=== PATIENT | female | born 1955 | race Two or more races ===

== ENCOUNTER 2016-11-30 07:23 | Outpatient (CLI) | payer OTHER | END 2016-11-30 11:18 | disposition home or self-care (01) | LOC: FOBOP 07:23 → F1NOP 11:18 | PROVIDERS: ATTEND Internal Medicine Hematology & Oncology | PROC: 30233M1 Transfusion of Nonautologous Plasma Cryoprecipitate into Peripheral Vein, Percutaneous Approach (ICD-10-PCS; principal; 2016-11-30) | DX: D68.0 Von Willebrand disease (principal) | CPT/HCPCS: 36430; 96365; P9012 ==

== ENCOUNTER 2017-05-17 15:00 | Observation (INO) | payer OTHER ==
[2017-05-17] MEDS ORDERED: oxyCODONE IR 5 MG TAB PO PRN (17:13)
[2017-05-17] MEDS ORDERED: PROMETHAZINE HCL 25 MG TAB PO PRN (17:13)
[2017-05-17] MEDS ORDERED: ONDANSETRON DISINTEGRATING 4 MG TAB PO PRN (17:13)
[2017-05-17] MEDS ORDERED: ONDANSETRON 4 MG/2 ML VIAL IVP PRN (17:13)
[2017-05-17] MEDS ORDERED: PROMETHAZINE HCL 25 MG/ML INJ IVP PRN (17:13)
[2017-05-17] MEDS ORDERED: ACETAMINOPHEN/CODEINE 300/30MG TAB PO PRN (17:15)
[2017-05-17 18:05] VITALS: RESP 16
[2017-05-17] MEDS: NS 1,000 ML IV SCH (18:20)
[2017-05-17] MEDS ORDERED: FLUOCINONIDE 0.05% 15 GM CREAM TP PRN (19:10)
[2017-05-17] MEDS ORDERED: CYCLOBENZAPRINE 10 MG TAB PO PRN (19:10)
[2017-05-17] MEDS ORDERED: ALBUTEROL 200 PUFFS/18 GM MDI IH PRN (19:10)
[2017-05-17] MEDS ORDERED: MAGNESIUM HYDROXIDE 30 ML UDCUP PO PRN (19:11)
[2017-05-17] MEDS ORDERED: LACTULOSE 20 GM/30 ML UDCUP PO PRN (19:11)
[2017-05-17] MEDS ORDERED: POLYETHYLENE GLYCOL 3350 17 GM PKT PO PRN (19:11)
[2017-05-17] MEDS ORDERED: BISACODYL 10 MG SUPP PR PRN (19:11)
--- NOTE | 2017-05-17 19:15 | PDGENHP ---
History and Physical - Chief Complaint Acute mouth pain - History of Present Illness Primary generation technician: Dr. Valenzuela HPI: 61-year-old female presenting with acute mouth pain located in the right axillary jaw at the site of her tooth extraction and bone graft with some associated mild bleeding and clotting at the site. She reports the pain is alleviated by Tylenol 3 and that the onset is after surgery on the day of this presentation. Duration has been persistent thereafter until was alleviated with the oral pain medication. The bleeding was very transient and has clotted. She received 1 dose of cryoprecipitate prior to her procedure. Prior to her procedure, she had otherwise been feeling well. Her last bowel movement was on the morning of this presentation. History Information - Allergies/Home Medication List Allergies/Adverse Reactions: latex [Latex] Allergy (Intermediate, Verified 08/18/11 05:42) Hives Benzodiazepines Allergy (Verified 08/25/14 14:20) desmopressin Allergy (Verified 08/25/14 14:20) lorazepam [From Ativan] Allergy (Verified 08/25/14 14:19) adhesive on tape Allergy (Uncoded 09/21/14 15:47) Home Medications: Cyclobenzaprine [Flexeril 10 MG (*)] 5 - 10 mg PO HS PRN 08/25/14 [Last Taken 22:00] Fluticasone Nasal [Flonase Nasal [place]] 2 sprays EACHNARE DAILY 08/25/14 [Last Taken 06/13/16 04:00] Oxybutynin Chloride Xl [Ditropan Xl 5mg (*)] 5 mg PO BID 08/25/14 [Last Taken 22:00] Simvastatin [Zocor 20 mg] 20 mg PO HS 08/25/14 [Last Taken 06/12/16 22:00] Anastrozole [Arimidex 1 mg (*)] 1 mg PO DAILY 01/07/15 [Last Taken 04/04/16] Albuterol [Ventolin Hfa Inhaler] 2 puffs IH DAILY PRN 06/06/16 [Last Taken 10/05] Cholecalciferol Vit D3 [Vitamin D3 (*)] 1,000 units PO DAILY 06/13/16 [Last Taken Unknown] Pentosan Polysulfate Sodium [ELMIRON] 100 mg PO TID 06/13/16 [Last Taken 04:00] Vitamin B Complex [B Complex] 1 each PO DAILY 06/13/16 [Last Taken Unknown] Fexofenadine HCl [Annmarie Allergy] 180 mg PO DAILY 05/17/17 [Last Taken Unknown] Fluocinonide 0.05% [Lidex 0.05% Cream (RX)] 1 shad TP BID PRN 05/17/17 [Last Taken Unknown] LEVOTHYROXINE SODIUM [Tirosint 75 mcg] 75 mcg PO MOTH 05/17/17 [Last Taken Unknown] Levothyroxine Sodium [Tirosint] 100 mcg PO SUTUWEFRSA 05/17/17 [Last Taken Unknown] Pentosan Polysulfate Sodium [Elmiron] 100 mg PO TID 05/17/17 [Last Taken Unknown ] I have personally reviewed and updated: family history, medical history, social history, surgical history - Past Medical History Additional medical history: 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 Interstitial cystitis. Nikki's thyroiditis. Cervical neck pain. Hyperlipidemia. Breast cancer. Hypothyroidism. Leftarm tendinopathy - Surgical History Additional surgical history: mastectomy. Dental surgery. Hysterectomy. Tonsillectomy. Orthopedic surgery - Family History Additional family history: breast cancer, von Willebrand's factor - Social History Smoking Status: Heavy smoker Alcohol Use: None Drug Use: None Additional social history: normally independent in ADLs Review of Systems ROS: 10pt was reviewed & negative except for what was stated in HPI & below Muscolosketal: Reports: other ( mouth pain) Physical Exam Temp Pulse Resp BP Pulse Ox 36.8 C 77 16 142/83 H 94 05/17/17 18:02 05/17/17 18:02 05/17/17 18:02 05/17/17 18:02 05/17/17 18:02 Constitutional: no apparent distress, appears nourished, not in pain Eyes: PERRL, anicteric sclera, EOMI Ears, Nose, Mouth, Throat: moist mucous membranes, hearing normal, other ( clotted blood on the axillary jaw line with sutures in place) Cardiovascular: regular rate and rhythym, no murmur, rub, or gallop, No edema Respiratory: no respiratory distress, no rales or rhonchi, clear to auscultation Gastrointestinal: normoactive bowel sounds, soft, non-tender abdomen, no palpable masses Skin: warm, normal color, no rashes or abrasions, no fluctuance, no induration, No mottled Neurologic: AAOx3, No facial droop Psychiatric: interacting appropriately, not anxious, not encephalopathic, thought process linear Assessment & Plan Assessment: 61-year-old female presents with oral pain following oral surgery in the setting of von Willebrand's like-factor disorder and factor IV deficiency Plan: 1. Oral surgery. Pain is currently well managed with Tylenol 3, bowel regimen added to avoid constipation, she will follow up with Dr. Marr 2. Von Willebrand's factor like disorder with factor 12 deficiency. Reviewed outside records including 06/13/2016 history and physical by Dr. Rodrigo Wheat, he describes the previous strategy for cryoprecipitate in this patient, discussed with Dr. Belgica Guzmán and we both agree that the patient should receive 2 doses of cryoprecipitate overnight at 8hr intervals given her high risk of delayed bleeding -will check CBC in a.m. -monitor closely for bleeding -discharge in a.m. if she does not experience any bleeding while receiving the cryoprecipitate treatment Diet. Regular, recommend soft Prophylaxis. High risk patient, SCDs Code. Full Disposition. Anticipated discharge is 05/18/2017, pending no catastrophic bleeding events overnight.
[2017-05-17] MEDS ORDERED: ATORVASTATIN CALCIUM 10 MG TAB PO SCH (21:00)
[2017-05-17] MEDS ORDERED: OXYBUTYNIN 5 MG EXT REL TAB PO SCH (21:00)
[2017-05-17] MEDS ORDERED: PENTOSAN POLYSULFATE SODIUM 100 MG PO SCH (22:00)
[2017-05-17] MEDS: SENNOSIDES/DOCUSATE SODIUM TAB PO SCH (22:28)
[2017-05-18] MEDS: OXYBUTYNIN CHLORIDE 5 MG TAB PO SCH ×2 (00:44→09:56)
[2017-05-18] MEDS: Pentosan Polysulfate Sodium [Elmiron] 100 MG PO SCH ×2 (00:45→09:56)
[2017-05-18] MEDS: NS 1,000 ML IV SCH (02:25)
[2017-05-18 05:06] LABS: % IMMATURE GRANULYOCYTES 0.4 % (0.0-1.1); ABSOLUTE IMMATURE GRANULOCYTES 0.03 10^3/uL (0.00-0.10); ADD DIFF? NO; ADD MORPH? NO; ADD SCAN? NO; ATYPICAL LYMPHOCYTE FLAG 0 (0-99); FRAGMENT RBC FLAG 0 (0-99); HEMATOCRIT 37.4 % (38.0-47.0); HEMOGLOBIN 12.3 g/dL (12.6-16.3); LEFT SHIFT FLG 10 (0-99); LIPEMIA HEMOLYSIS FLAG 80 (0-99); MEAN CELL HEMOGLOBIN 29.6 pg (27.9-34.1); MEAN CELL HEMOGLOBIN CONCENTR. 32.9 g/dL (32.4-36.7); MEAN CELL VOLUME 90.1 fL (81.5-99.8); MEAN PLATELET VOLUME 10.8 fL (8.7-11.7); PLATELET CLUMPS FLAG 0 (0-99); PLATELET COUNT 193 10^3/uL (150-400); RED BLOOD CELL COUNT 4.15 10^6/uL (4.18-5.33); RED CELL DISTRIBUTION WIDTH 13.2 % (11.5-15.2)
[2017-05-18] MEDS ORDERED: LEVOTHYROXINE SODIUM 100 MCG PO SCH (06:00)
[2017-05-18 08:05] VITALS: BP 115/79; PULSE 67; TEMP 98; O2SAT 95
[2017-05-18] MEDS ORDERED: CHOLECALCIFEROL VIT D3 1,000 UNITS TAB PO SCH (09:00)
[2017-05-18] MEDS ORDERED: CETIRIZINE 10 MG TAB PO SCH (09:00)
[2017-05-18] MEDS ORDERED: FLUTICASONE NASAL 120 SPRAYS/16 GM MDI EACHNARE SCH (09:00)
[2017-05-18] MEDS ORDERED: ANASTROZOLE 1 MG TAB PO SCH (09:00)
[2017-05-18] MEDS ORDERED: VITAMIN B COMPLEX 1 EA CAP/TAB PO SCH (09:00)
[2017-05-18] MEDS: SENNOSIDES/DOCUSATE SODIUM TAB PO SCH (09:56)
--- NOTE | 2017-05-18 11:05 | SOAPPROG ---
SOAP Progress Note Assessment/Plan: Assessment/Plan: 61 woman w vWD admitted for obs in setting of oral surgery s/p cryo x 3 No bleeding currently H/H ok OK to d/c today f/u w DR Valenzuela as scheduled 05/18/17 11:03 Subjective: Doing well some bleeding overnight Objective: Vital Signs Temp Pulse Resp BP Pulse Ox 36.6 C 67 16 115/79 95 05/18/17 08:03 05/18/17 08:03 05/18/17 08:03 05/18/17 08:03 05/18/17 08:03 Laboratory Results 05/18/17 04:29 05/17/17 05/18/17 05/19/17 05:59 05:59 05:59 Intake Total 3320 Balance 3320 Gen - NAD Oral cavity - no active bleeding tooth extraction site noted ICD10 Worksheet Patient Problems: Problems Problem Status Onset Breast cancer Acute
--- NOTE | 2017-05-18 11:58 | PDDCSUM ---
Discharge Summary Discharge Summary: 61 yo female with hx of Von Willebrand like disorder with factor 12 deficiency. Admitted following tooth extraction for bleeding precautions. Received cryoprecipitate before procedure and 2 doses here after the procedure. No e/o bleeding. Hgb is 12.3. Pain is well controlled DISCHARGE Dx: #VW like disorder, factor 12 deficiency #Post tooth extraction bleeding #Acute Pain Exam: VSS NAD AAOX3 RRR CTAB S/NT/ND NO E/O BLEEDING DISCHARGE MEDS: SEE MED REC. Oxycodone IR 5mg script provided #20 pills. No other changes to home regime f/u: will f/u with Dr. Nolasco as planned.
[2017-05-21] MEDS ORDERED: LEVOTHYROXINE SODIUM 75 MCG PO SCH (06:00)
== END 2017-05-18 13:30 | disposition home or self-care (01) ==
LOC: F1N 15:00
PROVIDERS: ADMIT Family Medicine; ATTEND Family Medicine
PROC: 30233M1 Transfusion of Nonautologous Plasma Cryoprecipitate into Peripheral Vein, Percutaneous Approach (ICD-10-PCS; principal; 2017-05-17)
DX: D68.0 Von Willebrand disease (principal); D68.2 Hereditary deficiency of other clotting factors; R68.84 Jaw pain; E06.3 Autoimmune thyroiditis; E78.5 Hyperlipidemia, unspecified; F17.210 Nicotine dependence, cigarettes, uncomplicated; Z85.3 Personal history of malignant neoplasm of breast
CPT/HCPCS: 36430; G0378; P9012; J2405

== ENCOUNTER 2017-10-03 10:15 | Outpatient (CLI) | payer OTHER | END 2017-10-03 12:08 | disposition home or self-care (01) | LOC: FOBOP 10:15 | PROVIDERS: ATTEND Internal Medicine Hematology & Oncology | PROC: 30233M1 Transfusion of Nonautologous Plasma Cryoprecipitate into Peripheral Vein, Percutaneous Approach (ICD-10-PCS; principal; 2017-10-03) | DX: D68.0 Von Willebrand disease (principal) | CPT/HCPCS: 36430; P9012; P9016 ==

== ENCOUNTER → 2017-10-03 | Outpatient (CLI) | payer OTHER | LOC: FIMAGING 12:20 | PROVIDERS: ATTEND Internal Medicine Hematology & Oncology | DX: R05 Cough (principal); Z85.3 Personal history of malignant neoplasm of breast ==

== ENCOUNTER 2017-11-22 08:05 | Observation (INO) | payer OTHER ==
[2017-11-22] MEDS ORDERED: ONDANSETRON 4 MG/2 ML VIAL IVP PRN (13:34)
[2017-11-22] MEDS ORDERED: ACETAMINOPHEN 325 MG TAB PO PRN (13:34)
[2017-11-22] MEDS ORDERED: FLUOCINONIDE 0.05% 15 GM CREAM TP PRN (14:31)
[2017-11-22] MEDS ORDERED: ACETAMINOPHEN/CODEINE 300/30MG TAB PO PRN (14:32)
[2017-11-22] MEDS ORDERED: LEVOTHYROXINE SODIUM 100 MCG PO SCH (14:45)
--- NOTE | 2017-11-22 15:07 | GHP ---
[f rep st] HISTORY AND PHYSICAL DATE OF ADMISSION: 11/22/2017 CHIEF COMPLAINT: Bleeding risk. HISTORY: The patient is a 62-year-old female with a known history of von Willebrand disease and fact or 12 deficiency. She has previously had a life-threatening bleed due to a dental procedure. She re quired a tooth extraction today and, per protocol, arranged with Dr. Valenzuela. She received 1 cryo in fusion prior to [facility]. She subsequently had her procedure and is no w presenting for overnight observation and 2 more cryoglobulin infusions this evening. Her tooth ext raction went without incident, and she does have some anticipated postoperative pain and requesting T ylenol #3. She is otherwise feeling well and in her usual state of health. PAST MEDICAL HISTORY: 1. Von Willebrand's disease. 2. Factor 12 deficiency. 3. Breast cancer, status post left mastectomy. 4. Nikki thyroiditis. 5. Hyperlipidemia. 6. Interstitial cystitis. PAST SURGICAL HISTORY: Hysterectomy. MEDICATIONS: Please see computer record for full detailed list. ALLERGIES: Multiple. Please see list in computer. SOCIAL HISTORY: She smokes daily, almost a pack a day. No alcohol. She lives with her . REVIEW OF SYSTEMS: Complete review of systems obtained. Review of systems negative regarding consti tutional, HEENT, GI, pulmonary, cardiovascular, , hematology, skin, muscular, endocrine, psych, exc ept for positives and negatives as in HPI. FAMILY HISTORY: Reviewed and noncontributory to presenting complaint. PHYSICAL EXAMINATION: GENERAL: Well-developed, well-nourished female, in no distress. VITAL SIGNS: Temperature 36.8, pulse 72, blood pressure 104/68, satting greater than 90% on room air. EYES: No rmal conjunctivae. Pupils react to light. ENT: Normal ears and nose. Hearing intact. Normal teet h. Oropharynx moist. NECK: Trachea midline. No thyromegaly. CHEST: Normal effort. LUNGS: Vida r to auscultation bilaterally. CARDIOVASCULAR: Regular rhythm. No murmur. No extremity edema. AB DOMEN: Soft, nontender. No hepatosplenomegaly. SKIN: Warm, dry, intact rash. MUSCULO SKELETAL: No cyanosis or clubbing. Strength 5/5, bilateral upper and lower extremities. NEURO: Cr anial nerves intact. Normal sensation to light touch. PSYCHIATRIC: Alert and oriented x3. Normal affect. Normal judgment. Normal memory. LABORATORY DATA: There are no labs yet, but I will order a CBC and Chem 7 for tomorrow morning, as w ell as deferring to Dr. Valenzuela regarding any factor levels that need to be checked tomorrow. MEDICAL RECORDS REVIEW: I reviewed medical records and previous hospitalizations, with similar tanner cols for dental work and cryoglobulin infusions. ASSESSMENT AND PLAN: 1. Von Willebrand's disease with factor 12 deficiency, cryoglobulin per Dr. Valenzuela, as well as foll ow up laboratory studies as needed. 2. Dental extraction. This proceeded without incident. Will continue Tylenol #3 as needed for pain . 3. Tobacco dependence. She declines a nicotine patch while she is in the hospital. 4. Hypothyroidism. Will continue Synthroid. COR STATUS: Full. ADMISSION STATUS: Will admit to observation and re-evaluate tomorrow regarding ongoing need for hosp italization. DVT PROPHYLAXIS: She is low risk. /[id number]/MODL
[2017-11-22] MEDS: Pentosan Polysulfate Sodium [Elmiron] 100 MG PO SCH ×2 (19:10→22:00)
[2017-11-22] MEDS ORDERED: CYCLOBENZAPRINE 10 MG TAB PO SCH (21:00)
[2017-11-22] MEDS ORDERED: OXYBUTYNIN CHLORIDE 5 MG TAB PO SCH (21:00)
[2017-11-22] MEDS ORDERED: NON-FORMULARY NEW DRUG (Simvastatin [Zocor 20 Mg] 20 MG) PO SCH (21:00)
[2017-11-22] MEDS ORDERED: ATORVASTATIN CALCIUM 10 MG TAB PO SCH (21:00)
[2017-11-22 22:02] VITALS: RESP 16
[2017-11-23] MEDS ORDERED: LEVOTHYROXINE 75 MCG TAB PO SCH (06:00)
[2017-11-23 06:38] LABS: PLATELET COUNT 212 10^3/uL (150-400)
[2017-11-23] MEDS ORDERED: ANASTROZOLE 1 MG TAB PO SCH (09:00)
[2017-11-23] MEDS ORDERED: FLUTICASONE NASAL 120 SPRAYS/16 GM MDI EACHNARE SCH (09:00)
[2017-11-23] MEDS ORDERED: CETIRIZINE 10 MG TAB PO SCH (09:00)
[2017-11-23] MEDS ORDERED: CHOLECALCIFEROL VIT D3 1,000 UNITS TAB PO SCH (09:00)
[2017-11-23] MEDS ORDERED: NON-FORMULARY NEW DRUG (Fexofenadine Hcl [Allegra Allergy] 180 MG) PO SCH (09:00)
[2017-11-23 10:11] VITALS: BP 105/69; PULSE 67; TEMP 97.3; O2SAT 94
--- NOTE | 2017-11-23 10:53 | SOAPPROG ---
[facility] Progress Note Assessment/Plan: Assessment: - vWD with linked factor XII deficiency - responds well to cryo. I would give her one more dose before discharge - dental surgery - no undue bleeding - Breast CA - TRACIE Plan: ok for D/C to home after her last dose of cryo Check PT/PTT before discharge Subjective: No bleeding Objective: Vital Signs Temp Pulse Resp BP Pulse Ox 36.3 C 67 16 105/69 94 11/23/17 07:30 11/23/17 07:30 11/23/17 07:30 11/23/17 07:30 11/23/17 07:30 Laboratory Results 11/23/17 06:15 11/23/17 06:15 11/21/17 11/22/17 11/23/17 23:59 23:59 23:59 Intake Total 800 Balance 800 Physical Exam - Physical Exam EENT: other (no oral hemorrhage) Skin: other (expected bruising L chin) ICD10 Worksheet Patient Problems: Problems Problem Status Onset Breast cancer Acute
[2017-11-23 13:32] LABS: INR 1.18 (0.83-1.16); PROTIME(PATIENT) 15.2 SEC (12.0-15.0)
[2017-11-23] MEDS: Pentosan Polysulfate Sodium [Elmiron] 100 MG PO SCH (13:43)
[2017-11-23] MEDS ORDERED: LEVOTHYROXINE SODIUM 75 MCG PO SCH (14:31)
[2017-11-23] MEDS ORDERED: Pentosan Polysulfate Sodium [Elmiron] 100 MG PO SCH (16:00)
--- NOTE | 2017-11-24 01:54 | GDS ---
[f rep st] DISCHARGE SUMMARY DISCHARGE DIAGNOSES: 1. Von Willebrand disease with factor XII deficiency. 2. History of life-threatening bleed due to dental extractions. 3. Tobacco dependence. 4. Hypothyroidism. HISTORY: The patient is a 62-year-old female with a coagulopathy and history of life-threatening ble eding from dental work. She has since been diagnosed with Von Willebrand disease with factor XII def iciency. Under the direction of Dr. Valenzuela, her car bracer, they had developed a protocol where s he gets cryoglobulin before and after dental procedures. She had a planned dental extraction, had a [facility]oglobulin through [facility], and then presented after her dental appointment for 2 more cryoglobulin doses and monitoring. She ended up getting a third cryoglobulin per Dr. Valenzuela prior t o discharge, and her follow-up PT and PTT were at her baseline and she was able to discharge home. S he had no bleeding complications throughout her observation period. DISCHARGE MEDICATIONS: Please see computerized record for full detailed list. There are no new medi cations given at time of hospital discharge. ADDITIONAL DISCHARGE INSTRUCTIONS: Follow up with Dr. Valenzuela as needed. Patient was seen and examined by me on the day of discharge. /[id number]/MODL
[2017-11-24] MEDS ORDERED: LEVOTHYROXINE 100 MCG TAB PO SCH (06:00)
== END 2017-11-23 15:00 | disposition home or self-care (01) ==
LOC: UNDOADMOB 08:05 → F1NOP 08:05 → F1N 08:05 → EDSTATUS 08:30 → FOB 12:40
PROVIDERS: ADMIT Internal Medicine; ATTEND Internal Medicine
PROC: 30233M1 Transfusion of Nonautologous Plasma Cryoprecipitate into Peripheral Vein, Percutaneous Approach (ICD-10-PCS; principal; 2017-11-22)
DX: D68.0 Von Willebrand disease (principal); D68.2 Hereditary deficiency of other clotting factors; Z98.818 Other dental procedure status; E03.9 Hypothyroidism, unspecified; E06.3 Autoimmune thyroiditis; F17.210 Nicotine dependence, cigarettes, uncomplicated; Z85.3 Personal history of malignant neoplasm of breast
CPT/HCPCS: 36430; G0378; P9012; P9016

== ENCOUNTER 2018-04-02 12:44 | Observation (INO) | payer OTHER ==
--- NOTE | 2018-04-02 17:18 | PDGENHP ---
History and Physical History and Physical: HOSPITAL MEDICINE CONSULTATION NOTE CC: I have been asked by Cash Valenzuela to evaluate and assist in the care of this patient who has a severe coagulopathy chronically with market bleeding after procedures and required all extractions today. HISTORY: This patient had apparently a dental abscess in November requiring removal of a molar on the lower left. This molar had been attached to a partial bridge which was left behind but the partial bridge was loose leading to infection of the teeth still remaining. This developed into abscess and osteomyelitis in today she required extraction, and resection of mandibular bone tissue and bone grafting. This was uncomplicated and she do well. However the patient does have a severe chronic coagulopathy that involves a factor 12 deficiency, and she always has significant bleeding with any kind of procedures. She requires cryoprecipitate which has been the only therapy that is been found to be effective at preventing or controlling bleeding for her. She did receive cryoprecipitate before her procedure and has had 1 dose after. She still having slight oozing at the operative site and it has been found that she requires cryoprecipitate for usually approximately 524-36 hours after such a procedure to avoid significant bleeding. She has little pain at the surgical site at this time. Apparently there was quite a bit of abscess and she is feeling in fact notably better after the surgery. She has been taking clindamycin for a few days leading up to this. She has no other recent illnesses or symptoms. Right now she has no chest pain breathing difficulty headache, abdominal discomfort nausea. ROS: A comprehensive 10 system review revealed no other significant findings PAST MEDICAL HISTORY: Severe coagulopathy with factor 12 deficiency, requiring cryoprecipitate with any injuries or procedures Breast cancer status post mastectomy Tendinopathy the left arm Nikki's thyroiditis Chronic neck pain Hyperlipidemia FAMILY MEDICAL HISTORY: Breast cancer and von Willebrand's disease SOCIAL HISTORY: She is a cigarette smoker MEDICATIONS: The patients list has been reconciled by our clinical pharmacist in the EMR. I have reviewed the list and ordered appropriate medicines. PHYSICAL EXAMINATION: Vital Signs: All stable so far without fever in the postoperative setting Photonics Engineering Technologist: Examination: General: alert, oriented, good mentation, relaxed Skin: warm, dry, good color, no rash HEENT: She still has mild abdirahman mandibular swelling on the left. On oral examination she has now 3 missing molars lower left, with a surgical bed acutely today involving the anterior teeth, with some very minimal oozing of blood at this time, the wound closure intact. Neck: no mass or jvd Resps: relaxed Lungs: clear breath sounds Heart: regular, no murmur Abdomen: soft, nondistended, nontender, +BS, no mass Upper Extremities: normal Lower Extremities: no edema, warm No Bleeding or bruising Neurologic: normal speech/language, normal kohinoor operator, no focal weakness IV site: looks normal LABORATORY DATA: No current laboratory data so far ASSESSMENT: # status post resection of teeth and mandibular tissue with bone graft for abscess # coagulopathy requiring precipitate for prevention of severe bleeding PLANS: -she will be on observation status here overnight -continue cryoprecipitate 100 mg every 8 hr and follow closely for any severe bleeding -anticipate likely discharge tomorrow if stable -continue her oral clindamycin for infection -continue her other usual medications as appropriate once those have been reconciled by pharmacy I have reviewed the patient's case in detail with Dr. Cash Valenzuela I have reviewed the patient's past medical records as part of this assessment, including previous hospital admission records
[2018-04-02] MEDS ORDERED: FLUOCINONIDE 0.05% 15 GM CREAM TP PRN ×2 (19:17→20:55)
[2018-04-02] MEDS ORDERED: LEVOTHYROXINE SODIUM 100 MCG PO SCH (19:30)
[2018-04-02] MEDS ORDERED: FLUTICASONE NASAL 120 SPRAYS/16 GM MDI EACHNARE PRN (20:56)
[2018-04-02] MEDS ORDERED: CLINDAMYCIN HCL 300 MG PO SCH (21:00)
[2018-04-02] MEDS ORDERED: CLINDAMYCIN HCL PO SCH (21:00)
[2018-04-02] MEDS ORDERED: OXYBUTYNIN CHLORIDE 5 MG TAB PO SCH (21:00)
[2018-04-02] MEDS ORDERED: ATORVASTATIN CALCIUM 10 MG TAB PO SCH (21:00)
[2018-04-02] MEDS ORDERED: SIMVASTATIN 20MG PO SCH (21:15)
[2018-04-02] MEDS ORDERED: PENTOSAN POLYSULFATE SODIUM 100 MG PO SCH (22:00)
[2018-04-02] MEDS ORDERED: POLYETHYLENE GLYCOL 3350 17 GM PKT PO PRN (22:53)
[2018-04-02] MEDS ORDERED: LACTULOSE 20 GM/30 ML UDCUP PO PRN (22:53)
[2018-04-02] MEDS ORDERED: BISACODYL 10 MG SUPP PR PRN (22:53)
[2018-04-02] MEDS ORDERED: MAGNESIUM HYDROXIDE 30 ML UDCUP PO PRN (22:53)
[2018-04-02] MEDS ORDERED: SENNOSIDES/DOCUSATE SODIUM TAB PO SCH (23:00)
[2018-04-02] MEDS: Pentosan Polysulfate Sodium [Elmiron] 100 MG) PO SCH (23:13)
[2018-04-02] MEDS ORDERED: CYCLOBENZAPRINE 10 MG TAB PO SCH (23:33)
[2018-04-03] MEDS ORDERED: LEVOTHYROXINE SODIUM 100 MCG PO SCH (06:00)
[2018-04-03] MEDS: Pentosan Polysulfate Sodium [Elmiron] 100 MG) PO SCH (06:02)
[2018-04-03 07:59] LABS: PLATELET COUNT 240 10^3/uL (150-400)
[2018-04-03 08:11] LABS: INR 1.11 (0.83-1.16); PROTIME(PATIENT) 14.5 SEC (12.0-15.0)
[2018-04-03] MEDS ORDERED: CHOLECALCIFEROL VIT D3 1,000 UNITS TAB PO SCH (09:00)
[2018-04-03] MEDS ORDERED: FLUTICASONE NASAL 120 SPRAYS/16 GM MDI EACHNARE SCH (09:00)
--- NOTE | 2018-04-03 10:37 | PDDCSUM ---
Discharge Summary Discharge Summary: DISCHARGE DIAGNOSES: -Dental Abscess/Mandibular Osteo -Coagulopathy with Factor XII deficiency -Hx of Breast Cancer PROCEDURES: Dental Extractions and Mandibular debridement by Dr Marr HOSPITAL COURSE SUMMARY: This patient has a long hx of coagulopathy due to factor deficiency and bleeds badly with medical procedures. She required dental extraction and mandibular resection due to infection at this time. She was treated before and after her procedure with cryoprecipitate infusions. There was no significant bleeding, and no side effects from the cryo. No other complications. She is stable for DC at present. Dr Marr has assessed her wound bed and finds it in excellent condition. PENDING TEST RESULTS: None MEDICATION CHANGES: None FOLLOW-UP PLAN: She has plans for follow up with Dr Marr next week. Greater than 35 minutes bedside and care coordination time today
[2018-04-03] MEDS ORDERED: OXYBUTYNIN CHLORIDE 5 MG TAB PO SCH (21:00)
[2018-04-04] MEDS ORDERED: LEVOTHYROXINE SODIUM 75 MCG PO SCH (06:00)
[2018-04-05] MEDS ORDERED: LEVOTHYROXINE SODIUM 75 MCG PO SCH (19:17)
== END 2018-04-03 10:45 | disposition home or self-care (01) ==
LOC: FOBOP 12:44 → FLD 14:00
PROVIDERS: ADMIT Internal Medicine; ATTEND Internal Medicine
PROC: 30233M1 Transfusion of Nonautologous Plasma Cryoprecipitate into Peripheral Vein, Percutaneous Approach (ICD-10-PCS; principal; 2018-04-02)
DX: D68.2 Hereditary deficiency of other clotting factors (principal); K04.7 Periapical abscess without sinus; E06.3 Autoimmune thyroiditis; E78.5 Hyperlipidemia, unspecified; M54.2 Cervicalgia; Z85.3 Personal history of malignant neoplasm of breast; Z80.3 Family history of malignant neoplasm of breast; Z83.2 Family history of diseases of the blood and blood-forming organs and certain disorders involving the immune mechanism; Z90.10 Acquired absence of unspecified breast and nipple; Z98.818 Other dental procedure status
CPT/HCPCS: 36430; G0378; P9012; P9016

== ENCOUNTER → 2018-04-02 | Outpatient (CLI) | payer OTHER ==
[~2018-04-02] MED LIST: DIAZEPAM 5 MG TAB PO ONE
== END ==
LOC: FOBOP 09:50
PROVIDERS: ATTEND Internal Medicine Hematology & Oncology
PROC: 30233M1 Transfusion of Nonautologous Plasma Cryoprecipitate into Peripheral Vein, Percutaneous Approach (ICD-10-PCS; principal; 2018-04-02)
DX: D68.0 Von Willebrand disease (principal); Z98.890 Other specified postprocedural states

== ENCOUNTER 2018-04-04 11:21 | Outpatient (CLI) | payer OTHER | END 2018-04-04 19:29 | disposition home or self-care (01) | LOC: FOBOP 11:21 | PROVIDERS: ATTEND Internal Medicine Hematology & Oncology | PROC: 30233M1 Transfusion of Nonautologous Plasma Cryoprecipitate into Peripheral Vein, Percutaneous Approach (ICD-10-PCS; principal; 2018-04-04) | DX: D68.0 Von Willebrand disease (principal) | CPT/HCPCS: P9012; P9016 ==

== ENCOUNTER 2018-04-05 12:21 | Observation (INO) | payer OTHER ==
[2018-04-05] MEDS ORDERED: ACETAMINOPHEN 325 MG TAB PO PRN (14:00)
--- NOTE | 2018-04-05 14:52 | GHP ---
[f rep st] HISTORY AND PHYSICAL DATE OF ADMISSION: 04/05/2018 CHIEF COMPLAINT: Bleeding and von Willebrand's disease. HISTORY OF PRESENT ILLNESS: This is a 62-year-old female who had a recent dental procedure and has h ad bleeding since then. This began with an abscess in November, which required removal of a molar on the lower left. This was a somewhat complicated procedure involving abscess, as well as osteomyeliti s, with a partial bridge, which was extracted on Sunday. She was admitted after this for cryoprecip itate given her von Willebrand's, as well as factor XII deficiency, which responds well to cryo. She did well, however, returned to see Dr. Valenzuela, her statistical methods teacher, yesterday where she received anoth er unit of cryoprecipitate. She tells me that her bleeding was worse overnight. She saw Dr. Valenzuela today, who sent her in for admission given her ongoing bleeding. She tells me she is swallowing chico e of the blood. She has no other real complaints at this time, including abdominal pain. PAST MEDICAL/SURGICAL HISTORY: 1. Coagulopathy with factor XII deficiency, as well as von Willebrand's disease, which responds well to cryoprecipitate. 2. Breast cancer, status post mastectomy. 3. Left arm tendinopathy. 4. Nikki's thyroiditis. 5. Chronic neck pain. 6. Hyperlipidemia. MEDICATIONS: Please see medication reconciliation. ALLERGIES: Latex, benzodiazepines, desmopressin, and adhesive on tape. FAMILY HISTORY: Breast cancer and von Willebrand's disease. SOCIAL HISTORY: She currently smokes cigarettes. REVIEW OF SYSTEMS: A 10-point review of systems is conducted and is negative, except per HPI. PHYSICAL EXAM: VITAL SIGNS: Blood pressure 104/68, heart rate 80, respiration rate 14, saturating 9 4% on room air. Temperature is 36.8. GENERAL: The patient is a pleasant female who is resting comf ortably, fully participating in the interview. HEENT: Shows her to have a small amount of gauze in the left side of her mouth. CARDIOVASCULAR: Exam shows a regular rate and rhythm. No murmurs, rubs, or gallops. PULMONARY: Lungs clear to auscultation bilaterally. ABDOMEN: Soft, nontender, nondis tended. SKIN: Shows no rash. : No Marr. NEUROLOGIC: Exam shows her to be alert and oriented x3. She is moving all extremities. PSYCHIATRIC: Exam shows a normal mood and affect. LABS: INR reviewed from 04/03/2018, which was 1.1. Her PTT was 46.7. DATA: 1. I communicated with Dr. Valenzuela regarding the dosing schedule of her cryoprecipitate. 2. I reviewed her chart, including her last admission. IMPRESSION AND PLAN: A 62-year-old female with von Willebrand's and factor XII deficiency, admitted with ongoing bleeding after a dental procedure. 1. Bleeding after dental procedure: Recommend 1 unit of cryoprecipitate now, as well as another uni t 8 hours after. I have ordered this. Discussed with nursing. Will check her coags in the morning. She will be seen by Dr. Marr today to assess the surgical site. 2. Von Willebrand's and factor XII deficiency: As above. 3. Breast cancer, status post mastectomy: Will continue her Arimidex. 4. Hypothyroid: Synthroid. 5. Overactive bladder: Oxybutynin. 6. Chronic pain: Continue her Tylenol No. 3. /[id number]/MODL
[2018-04-05] MEDS ORDERED: FLUOCINONIDE 0.05% 15 GM CREAM TP PRN (15:43)
[2018-04-05] MEDS ORDERED: LEVOTHYROXINE SODIUM 100 MCG PO SCH (15:45)
[2018-04-05] MEDS ORDERED: LEVOTHYROXINE 100 MCG TAB PO SCH (15:50)
[2018-04-05] MEDS: (Pentosan Polysulfate Sodium [Elmiron] 100 MG) PO SCH ×2 (17:06→22:24)
[2018-04-05] MEDS ORDERED: CYCLOBENZAPRINE 10 MG TAB PO SCH (21:00)
[2018-04-05] MEDS ORDERED: ATORVASTATIN CALCIUM 10 MG TAB PO SCH (21:00)
[2018-04-05] MEDS ORDERED: OXYBUTYNIN CHLORIDE 5 MG TAB PO SCH (21:00)
[2018-04-05] MEDS ORDERED: NON-FORMULARY NEW DRUG (Simvastatin [Zocor 20 Mg] 20 MG) PO SCH (21:00)
[2018-04-05] MEDS: ALAWAY EYE EACHEYE SCH (22:22)
[2018-04-06 04:42] LABS: INR 1.11 (0.83-1.16); PROTIME(PATIENT) 14.5 SEC (12.0-15.0)
[2018-04-06] MEDS ORDERED: LEVOTHYROXINE 100 MCG TAB PO SCH (06:00)
[2018-04-06] MEDS ORDERED: LEVOTHYROXINE 75 MCG TAB PO SCH (06:00)
[2018-04-06] MEDS ORDERED: ANASTROZOLE 1 MG TAB PO SCH (09:00)
[2018-04-06] MEDS ORDERED: CETIRIZINE 10 MG TAB PO SCH (09:00)
[2018-04-06] MEDS ORDERED: VITAMIN B COMPLEX 1 EA CAP/TAB PO SCH (09:00)
[2018-04-06] MEDS ORDERED: CHOLECALCIFEROL VIT D3 1,000 UNITS TAB PO SCH (09:00)
[2018-04-06] MEDS ORDERED: FLUTICASONE NASAL 120 SPRAYS/16 GM MDI EACHNARE SCH (09:00)
[2018-04-06] MEDS ORDERED: NON-FORMULARY NEW DRUG (Fexofenadine Hcl [Allegra Allergy] 180 MG) PO SCH (09:00)
--- NOTE | 2018-04-06 09:32 | SOAPPROG ---
SOAP Progress Note Assessment/Plan: Assessment: 1. vW disease with linked factor XII deficiency - s/p dental extraction with prolonged bleeding. Responded to cryo (preferred component for her). Site of incision now without bleeding or oozing. 2. Breast CA. Currently TRACIE. On adjuvant antiestrogen therapy now. Plan: - OK for discharge from heme/onc point of view - f/u with me 1-2 weeks in office. Subjective: Jaw stopped oozing at about 3 AM today. She feels ready to go home. Objective: Vital Signs Temp Pulse Resp BP Pulse Ox 36.8 C 81 18 118/78 97 04/06/18 07:39 04/06/18 07:39 04/06/18 07:39 04/06/18 07:39 04/06/18 07:39 04/04/18 04/05/18 04/06/18 23:59 23:59 23:59 Intake Total 2100 1350 Balance 2100 1350 PT 14.5 SEC (12.0-15.0) 04/06/18 04:16 INR 1.11 (0.83-1.16) 04/06/18 04:16 Physical Exam - Physical Exam General Appearance: alert, no apparent distress EENT: other (no bleeding or oozing from lower jaw this AM) Respiratory: lungs clear Cardiac/Chest: regular rate, rhythm Abdomen: normal bowel sounds Neuro/Psych: no motor/sensory deficits, alert, normal mood/affect, oriented x 3 ICD10 Worksheet Patient Problems: Problems Problem Status Onset Breast cancer Acute
[2018-04-06] MEDS: (Pentosan Polysulfate Sodium [Elmiron] 100 MG) PO SCH (09:59)
[2018-04-06] MEDS: ALAWAY EYE EACHEYE SCH (10:00)
[2018-04-06 11:13] VITALS: BP 124/78
--- NOTE | 2018-04-06 12:21 | GDS ---
[f rep st] DISCHARGE SUMMARY ALL DIAGNOSES: 1. Bleeding after dental procedure. 2. Von Willebrand's disease. 3. Factor 12 deficiency. 4. Breast cancer, status post mastectomy. 5. Hypothyroid. 6. Overactive bladder. 7. Chronic pain. HOSPITAL COURSE: A 62-year-old female, who had ongoing bleeding after dental procedure. She had rec eived a number of units of cryoglobulin, which she response to, at this hospital. Bleeding had tempo rarily slowed down however had not discontinued. She was readmitted for ongoing cryoglobulin. She r eceived 3 transfusions of this. Her gum has clotted and she has no ongoing bleeding. She is stable for discharge at this point. She will follow up with Dr. Marr as well as Dr. Valenzuela in 1-2 weeks f or ongoing management of her dental issues as well as her hematologic and oncologic issues. She is di scharged in stable condition. /[id number]/MODL
[2018-04-06] MEDS ORDERED: (Pentosan Polysulfate Sodium [Elmiron] 100 MG) PO SCH (16:00)
--- NOTE | 2018-04-06 16:07 | ASDISCHSUM ---
Discharge Information Plan Status:Home with No Needs Medically Cleared to Leave:04/06/2018 Discharge Date:04/06/2018 01:00 PM CM D/C Disposition:Home, Routine, Self-Care ADT D/C Disposition:Home, Routine, Self-Care Projected Discharge Date:04/06/2018 12:00 AM Transportation at D/C:Family Discharge Delay Reason: Follow-Up Date:04/06/2018 12:00 AM Discharge Slot:1 - 8:01 am - 12:00 noon Final Diagnosis:Von Willebrands Disease Placement Information Patient Contact Information Contact Name:JOHN Relationship: Address:[address] City:[place] Alternate Phone: State/Zip Code:[place] [address] Email: Financial Information Financial Class:HMO and PPO Plans Primary Plan Desc:[employer] PPO POS HMO Primary Plan Number:[id number] Secondary Plan Desc:[facility] Secondary Plan Number:[id number] Assessment Information Intervention Information
--- NOTE | 2018-04-06 16:09 | ASMTCMCOM ---
CM Note CM Note Notes: CM met with patient immediately before discharge, states she has no needs, sister will drive her home and support her with follow up recommendations. D/C: home today independently. Date Signed: 04/06/2018 04:08 PM Electronically Signed By:Stacy Macias
[2018-04-08] MEDS ORDERED: LEVOTHYROXINE 75 MCG TAB PO SCH (06:00)
[2018-04-08] MEDS ORDERED: LEVOTHYROXINE SODIUM 75 MCG PO SCH (15:43)
== END 2018-04-06 13:00 | disposition home or self-care (01) ==
LOC: UNDOADMOB 12:56 → F1N 12:56
PROVIDERS: ADMIT Student in an Organized Health Care Education/Training Program; ATTEND Student in an Organized Health Care Education/Training Program
PROC: 30233M1 Transfusion of Nonautologous Plasma Cryoprecipitate into Peripheral Vein, Percutaneous Approach (ICD-10-PCS; principal; 2018-04-05)
DX: D69.8 Other specified hemorrhagic conditions (principal); D68.0 Von Willebrand disease; D68.2 Hereditary deficiency of other clotting factors; D05.12 Intraductal carcinoma in situ of left breast; E03.9 Hypothyroidism, unspecified; N32.81 Overactive bladder; G89.29 Other chronic pain; Z98.818 Other dental procedure status; Z90.10 Acquired absence of unspecified breast and nipple
CPT/HCPCS: 36430; G0378; P9012; P9016

== ENCOUNTER 2018-11-07 12:13 | Outpatient (CLI) | payer OTHER | END 2018-11-07 13:06 | disposition home or self-care (01) | LOC: F1NOP 12:13 | PROVIDERS: ATTEND Internal Medicine Hematology & Oncology | PROC: 30233M1 Transfusion of Nonautologous Plasma Cryoprecipitate into Peripheral Vein, Percutaneous Approach (ICD-10-PCS; principal; 2018-11-07) | DX: D68.0 Von Willebrand disease (principal); D05.12 Intraductal carcinoma in situ of left breast ==

== ENCOUNTER 2019-04-24 12:16 | Emergency (ER) | payer OTHER | END 2019-04-24 14:14 | disposition home or self-care (01) ==